=== PATIENT | female | born 1960 | race African-American/Black ===

== ENCOUNTER 2021-06-20 14:14 | Emergency (ER) | payer OTHER ==
[~2021-06-20] VITALS: Ht 165.1 cm; Wt 68.0 kg
[2021-06-20 17:23] LABS: BILIRUBIN Negative (Negative); BLOOD Negative (Negative); CLARITY Clear (Clear); COLOR Yellow (Yellow); GLUCOSE Negative (Negative); KETONE Negative (Negative); LEUKO ESTERASE 3+ (Negative); NITRITE Negative (Negative); PH 6.5 (4.5-8.0); SPECIFIC GRAVITY 1.015 (1.001-1.030)
[2021-06-20 17:33] LABS: BACTERIA TRACE; RBC 0-2 rbc/hpf (0-2); WBC 21-30 wbc/hpf (0-5)
[2021-06-20] MEDS ORDERED: CEFUROXIME AXE500 MG PO (18:29)
== END 2021-06-20 18:56 | disposition home or self-care (01) ==
LOC: ED 14:14
PROVIDERS: Physician Assistant
DX: N39.0 Urinary tract infection, site not specified (principal)